=== PATIENT | male | born 1975 | race Caucasian/White ===

== ENCOUNTER 2017-01-23 12:34 | Emergency (ER) | payer OTHER ==
[2017-01-23 12:38] VITALS: BP 124/97; PULSE 68; TEMP 98; BMI 29.0
[2017-01-23] MEDS ORDERED: CEPHALEXIN MONOHYDRATE 500 MG CAPSULE (UD) PO ONE (13:52)
[2017-01-23] MEDS ORDERED: CEPHALEXIN MONOHYDRATE 500 MG CAPSULE (UD) ONE (13:54)
--- NOTE | 2017-01-23 13:55 | PDOC ---
[id number] RT THUMB LACERATION Time Seen by Provider: 01/23/17 13:24 History Source: Patient Exam Limitations: No Limitations - History of Present Illness Initial Comments: 01/23/17 14:26 Chief complaint right thumb laceration History of present illness: Patient is a 41-year-old male here today with a laceration to his right thumb that he sustained on a razor while working in his home. Patient has full range of motion of right thumb at MCP and PIP and DIP joint. Pt. denies any numbness of right thumb or hand. She was up-to-date with tetanus. 01/23/17 14:28 Occurred: reports: just prior to arrival Severity: reports: mild Pain Location: reports: upper extremity (rt. thumb laceration) Method of Injury: Yes: other (on a razor) Modifying Factors: improves with: None Loss of Consciousness: no loss of consciousness Associated Symptoms (Fall): denies symptoms Past History - Past Medical History Allergies/Adverse Reactions: Allergies Allergy/AdvReac Type Severity Reaction Status Date / Time No Known Allergies Allergy Verified 01/23/17 12:38 Home Medications: Ambulatory Orders Cephalexin Monohydrate [Keflex -] 500 mg PO Q8H #20 capsule 01/23/17 Other medical history: denies - Psycho/Social/Smoking Cessation Hx Suicidal Ideation: No Smoking History: Never smoked Information on smoking cessation initiated: No Hx Alcohol Use: No Drug/Substance Use Hx: No Substance Use Type: Marijuana Review of Systems - Review of Systems Able to Perform ROS?: Yes Constitutional: No: Symptoms Reported HEENTM: No: Symptoms Reported Respiratory: No: Symptoms reported Cardiac (ROS): No: Symptoms Reported ABD/GI: No: Symptoms Reported : No: Symptoms Reported Musculoskeletal: No: Symptoms Reported Integumentary: Yes: Other (rt. dorsal thumb laceration proximal phalange) Neurological: No: Symptoms reported *Physical Exam - Vital Signs Last Vital Signs Temp Pulse Resp BP Pulse Ox 98 F 68 18 124/97 98 01/23/17 12:35 01/23/17 12:35 01/23/17 12:35 01/23/17 12:35 01/23/17 12:35 - Physical Exam General Appearance: Yes: Appropriately Dressed Comments:: 01/23/17 14:01 right radial pulse 4 + Extremity: positive: Normal Capillary Refill, Normal Range of Motion (rt. thumb at MCP jt, PIP JT, DIP jt. ), Tender (rt. thumb ) Integumentary: positive: Other (laceration rt. dorsal proximal thumb approx 2.6 cm x 0.25 cm linear superficial ) Neurologic: positive: Normal Response (rt. thumb ), Respond to painful stimul ( rt. thumb ). negative: Sensory Deficit Procedures - Consent Consent obtained: From Patient - Laceration/Wound Repair Right Dorsal 1st digit Finger Wound Length: 2.6 to 5.0 cm Wound Explored: clean Wound's Depth, Shape: superficial, linear Irrigated w/ Saline: Yes Betadine Prep: Yes Anesthesia: 1% Lidocaine Amount of Anesthetic (ccs): 2 Wound Repaired With: Sutures Suture Size/Type: 4:0 Number of Sutures: 5 (interrupted) Sterile Dressing Applied: Yes Splint Applied: No Sling Applied: No Progress: 01/23/17 14:09 Cleanse with Betadine and then Irrigated thoroughly with normal saline 0.9 % no foreign body noted, no tendon involvement patient has full range of motion of her right MCP joint, PIP joint and DIP joint. Medical Decision Making - Medical Decision Making 01/23/17 14:28 Patient is a 41-year-old male here today with a laceration to his right thumb that he sustained on a razor while working in his home. Patient has full range of motion of right thumb at MCP and PIP and DIP joint. Pt. denies any numbness of right thumb or hand. She was up-to-date with tetanus. Right thumb laceration PLAN: Five interrupted sutures placed and right dorsal thumb laceration Dry sterile dressing applied Keflex 500 mg by mouth given and then 1 tab every 8 hours 7 days Patient lives in [facility] will have sutures removed there in 10- 14 days *DC/Admit/Observation/Transfer Diagnosis at time of Disposition: Laceration of thumb Qualifiers: Encounter type: initial encounter Laterality: right Qualified Code(s): S61.011A - Laceration without foreign body of right thumb without damage to nail , initial encounter - Discharge Dispostion Disposition: HOME Condition at time of disposition: Stable - Prescriptions Prescriptions: Cephalexin Monohydrate [Keflex -] 500 mg PO Q8H #20 capsule - Patient Instructions Additional Instructions: May wash wound twice daily with antibacterial soap and water pat dry well and apply a tiny amount of bacitracin cover with dressing went out of home let air out at night Follow up forced suture removal in 10-14 days or sooner if any redness around wound or discharge from wound Patient voiced understanding of discharge instructions and all questions were answered
== END 2017-01-23 14:04 | disposition home or self-care (01) ==
LOC: JERFT 12:34
PROC: 0HQFXZZ Repair Right Hand Skin, External Approach (ICD-10-PCS; principal; 2017-01-23)
DX: S61.011A Laceration without foreign body of right thumb without damage to nail, initial encounter (principal); W27.8XXA Contact with other nonpowered hand tool, initial encounter; Y93.89 Activity, other specified; Y92.018 Other place in single-family (private) house as the place of occurrence of the external cause
CPT/HCPCS: 99281-25

== ENCOUNTER 2017-07-24 11:00 | Emergency (ER) | payer OTHER ==
[2017-07-24 11:10] VITALS: BP 120/78; PULSE 65; TEMP 98.2; BMI 30.9
--- NOTE | 2017-07-24 12:16 | PDOC ---
History of Present Illness - General Chief Complaint: Pain, Acute Stated Complaint: LT SHOULDER/ ARM PAIN Time Seen by Provider: 07/24/17 11:58 History Source: Patient Exam Limitations: No Limitations - History of Present Illness Initial Comments: 07/24/17 12:14 42 yr male with c/o pain to left shoulder after fall off mower machine yesterday , pt was mowing the lawn on a stand up mower when he hit a pothole and fell. pt denies head trauma no LOC. Occurred: reports: yesterday Severity: reports: moderate Upper Extremity Pain Location: left: shoulder (pt right hand dominant ) Method of Injury: reports: fell Modifying Factors: improves with: None Past History - Past Medical History Allergies/Adverse Reactions: Allergies Allergy/AdvReac Type Severity Reaction Status Date / Time No Known Allergies Allergy Verified 07/24/17 11:04 Home Medications: Ambulatory Orders Naproxen [Naprosyn -] 500 mg PO BID PRN #20 tablet 07/24/17 GI Disorders: Yes (GERD) Psychiatric Problems: Yes (ANXIETY) - Surgical History Neurologic Surgery: Yes ("SPINAL CYST REMOVAL") - Immunization History Immunization Up to Date: Yes - Psycho/Social/Smoking Cessation Hx Suicidal Ideation: No Smoking History: Never smoked Have you smoked in the past 12 months: No Information on smoking cessation initiated: No Hx Alcohol Use: Yes (ALCOHOL) Drug/Substance Use Hx: No Substance Use Type: Alcohol, Marijuana *Physical Exam - Vital Signs Last Vital Signs Temp Pulse Resp BP Pulse Ox 98.2 F 65 16 120/78 98 07/24/17 11:04 07/24/17 11:04 07/24/17 11:04 07/24/17 11:04 07/24/17 11:04 - Physical Exam General Appearance: Yes: Nourished, Appropriately Dressed HEENT: positive: EOMI, CHAVEZ, TMs Normal, Pharynx Normal Neck: positive: Supple. 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, Fully Oriented, Alert, Normal Mood/ Affect, Normal Response, Motor Strength 5/5 ED Treatment Course - RADIOLOGY Radiology Studies Ordered: Category Date Time Status SHOULDER-LEFT [RAD] Stat Radiology 07/24/17 12:10 Ordered Medical Decision Making - Medical Decision Making 07/24/17 12:15 cc: 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 no head trauma will get xray to r/o fracture pt took 800motrin [employer] 07/24/17 12:59 sling placed to left arm dc home with follow up with orthopedist tomorrow in [place] (pt has apt) 07/24/17 13:03 *DC/Admit/Observation/Transfer Diagnosis at time of Disposition: Left shoulder strain Qualifiers: Encounter type: initial encounter Qualified Code(s): S46.912A - Strain of unspecified muscle, fascia and tendon at shoulder and upper arm level, left arm , initial encounter - Discharge Dispostion Disposition: HOME Condition at time of disposition: Improved - Prescriptions Prescriptions: Naproxen [Naprosyn -] 500 mg PO BID PRN #20 tablet PRN Reason: Pain - Referrals Referrals: STAFF,NOT ON [Primary Care Provider] - Ephraim Camacho MD [Staff Physician] - - Patient Instructions Additional Instructions: use sling while awake remove to sleep, drive and bathe take naprosyn for pain every 12hrd as directed follow with your orthopedist tomorrow as scheduled or with in [place]
== END 2017-07-24 13:07 | disposition home or self-care (01) ==
LOC: JERFT 11:00
DX: S46.812A Strain of other muscles, fascia and tendons at shoulder and upper arm level, left arm, initial encounter (principal); W31.89XA Contact with other specified machinery, initial encounter; Y93.H2 Activity, gardening and landscaping; Y92.89 Other specified places as the place of occurrence of the external cause; Y99.8 Other external cause status
CPT/HCPCS: 73030-TC-LT; 99281-25